=== PATIENT | female | born 2000 | race Asian ===

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

== ENCOUNTER 2019-04-25 15:41 | Emergency (ER) | payer OTHER ==
[~2019-04-25] VITALS: Ht 162.6 cm; Wt 43.1 kg
[2019-04-25 15:48] VITALS: BP 131/88
--- NOTE | 2019-04-25 15:51 | NUR ---
PT TO BED 8 WITH STEADY GAIT
--- NOTE | 2019-04-25 16:01 | NUR ---
18 Y/O F ACCOMPANIED WITH MOTHER WITH C/O RT EAR PAIN 4/10 X1 DAY AFTER USING EAR WAX REMOVAL KIT AT HOME. PT STATES SHE HAS HAD INTERMITENT PAIN AFTER THE EAR WAX DROPS. PT RT EAR IS NOT RED IN COLOR, THERE IS WAX IN THE INNER EAR. PT LEFT EAR IS CLEAR OF WAX. PT POSITIONED FOR COMFORT. PT STATES SHE IS ABLE TO HEAR WITH BOTH EARS. APRIL
[2019-04-25 16:12] VITALS: BP 131/88
--- NOTE | 2019-04-25 16:12 | NUR ---
Patient discharged with v/s stable. Written and verbal after care instructions given and explained. Patient alert, oriented and verbalized understanding of instructions. Ambulatory with steady gait. All questions addressed prior to discharge. ID band removed. Patient advised to follow up with PMD. Rx of MOTRIN, LORATITIDNE given. Patient educated on indication of medication including possible reaction and side effects. Opportunity to ask questions provided and answered.
== END 2019-04-25 16:12 | disposition home or self-care (01) ==
LOC: MED 15:41
DX: H92.01 Otalgia, right ear (principal)
CPT/HCPCS: 99282